=== PATIENT | male | born 1985 | race Caucasian/White ===

== ENCOUNTER 2021-09-07 18:29 | Emergency (ER) | payer SELFPAY ==
[~2021-09-07 18:29] MED LIST: AMOXICILLIN500 MG PO; ANUSOL-HC25 MG RC; VICODIN ES 7501 TAB PO
== END 2021-09-07 20:29 | disposition left against medical advice (07) ==
LOC: ED 18:29
DX: R21 Rash and other nonspecific skin eruption (principal); Z53.21 Procedure and treatment not carried out due to patient leaving prior to being seen by health care provider